=== PATIENT | male | born 1985 | race Two or more races ===

== ENCOUNTER 2018-05-26 06:13 | Day surgery (SDC) | payer MEDICARE, OTHER ==
--- NOTE | 2018-05-23 16:15 | Pre-op HX & Phy Repo 2 SIG ---
DATE OF ADMISSION: 05/26/2018 DATE OF SURGERY: 05/26/2018. PREOPERATIVE DIAGNOSIS: Nonclearing vitreous hemorrhage, left eye. BRIEF NOTE: This is a first [facility] admission for the patient who is a very nice 33-year-old gentleman, who has very severe proliferative diabetic retinopathy and a nonclearing hemorrhage on the left eye. PAST OCULAR HISTORY: Remarkable for multiple Avastin injections in my office. He has a history of diabetic retinopathy. PAST MEDICAL HISTORY: Remarkable for diabetes since 1995. He has had hypertension and has been HIV positive since 2016. PAST SURGICAL HISTORY: He had an amputation in 2008 as well as gallbladder surgery in 2018. MEDICATIONS: Descovy, Lantus, NovoLog, atorvastatin, lisinopril, and amlodipine. ALLERGIES: He has no known allergies. SOCIAL HISTORY: He does not smoke. PHYSICAL EXAMINATION: EYES: Best vision at the time of admission was 20/25 in the right eye and 20/60- in the left. The pressures were 13 and 14. The anterior segments were quiet in either eye. Fundus exam of the right eye showed optic disc neovascularization. There was some degree of diabetic macular edema. Peripheral vascular tortuosity was seen as well as proliferative retinopathy. The left fundus showed a fairly significant vitreous hemorrhage with some mild degree of central clearing. There was widespread proliferative retinopathy. General physical examination will be done by Dr. Cohen. ASSESSMENT: Severe proliferative diabetic retinopathy both eyes were nonclearing vitreous hemorrhage, left eye. PLAN: The plan is to perform a pars plana vitrectomy with membrane dissection as needed, extensive endolaser, and Avastin injection on the left. The risks and benefits of surgery gone over the patient with potential for infection, hemorrhage, retinal detachment, glaucoma, remote possibility of loss of the eye. The risk of anesthesia was discussed. The patient understands and consents to the surgery, which will be performed on Saturday morning. Feliciano Vernon M.D. DR: ARSLAN JOB#: [id number] CC:
[2018-05-26] VITALS (11 sets, daily range): BP systolic 116–160; BP diastolic 69–101
[~2018-05-26] VITALS: Ht 175.3 cm; Wt 93.0 kg
[~2018-05-26 06:13] MED LIST: Avastin 10mg Inj IVITRE ONE
[2018-05-26] MEDS: Cyclopentolate 1% Opth Sol 2ml LEFT EYE SCH ×3 (06:46→07:01)
[2018-05-26] MEDS: Flurbiprofen 0.03% Opth Sol 2.5ml LEFT EYE SCH ×3 (06:46→07:01)
[2018-05-26] MEDS: Vigamox Opth Soln 3ml LEFT EYE SCH ×3 (06:46→07:01)
[2018-05-26] MEDS: Phenylephrine 2.5% Op 2ml Soln LEFT EYE SCH ×3 (06:46→07:01)
[2018-05-26] MEDS ORDERED: Pred Forte 1% Opth Susp 1ml LEFT EYE SCH (07:00)
[2018-05-26] MEDS ORDERED: EPINEPHrine 1mg/1ml Amp ONE (07:05)
[2018-05-26] MEDS ORDERED: BSS 15ml BTL ONE (07:06)
[2018-05-26] MEDS ORDERED: Pred Forte 1% Opth Susp 1ml ONE (07:06)
[2018-05-26] MEDS ORDERED: Kenalog-40 1ml Vial ONE (07:06)
[2018-05-26] MEDS ORDERED: Dexamethasone 4mg/ml vial ONE (07:06)
[2018-05-26] MEDS ORDERED: BSS 500ml btl ONE (07:06)
[2018-05-26] MEDS ORDERED: Kenalog-10 5ml Inj ONE (07:06)
[2018-05-26] MEDS ORDERED: Lidocaine 2% MPF 5ml Vial INJ ONE (07:06)
[2018-05-26] MEDS ORDERED: Maxitrol Opth Oint 3.5gm ONE (07:06)
[2018-05-26] MEDS ORDERED: Bupivacaine 0.75% 30ml vial INJ ONE (07:07)
[2018-05-26] MEDS ORDERED: Povidone-Iodine 5% opth solution ONE (07:07)
[2018-05-26] MEDS ORDERED: Tetracaine 0.5% Opth 4ml Soln ONE (07:07)
[2018-05-26] MEDS ORDERED: Sodium Hyaluronate 10 mg/ml 0.85ml ONE (07:07)
[2018-05-26] MEDS ORDERED: ASPIR 8181 MG ORAL (07:13)
[2018-05-26] MEDS ORDERED: descovy PO (07:13)
[2018-05-26] MEDS ORDERED: NORVASC10 MG ORAL (07:13)
[2018-05-26] MEDS ORDERED: LISINOPRIL20 MG ORAL (07:13)
[2018-05-26] MEDS ORDERED: ATORVASTATIN CA20 MG ORAL (07:13)
[2018-05-26] MEDS ORDERED: TIVICAY50 MG ORAL (07:13)
[2018-05-26] MEDS ORDERED: NOVOLOG100 UNIT/4 SQ (07:15)
--- NOTE | 2018-05-26 07:24 | Pre-Procedure Note/Attestation ---
Pre-Procedure Note/Attestation Complete Prior to Procedure Planned Procedure: left Procedure Narrative: PPV, endolaser, Avastin injection Left eye Indications for Procedure Pre-Operative Diagnosis: Non-clearing vitreous hemorrhage Left eye Attestation I attest that I discussed the nature of the procedure; its benefits; risks and complications; and alternatives (and the risks and benefits of such alternatives ), prior to the procedure, with the patient (or the patient's legal commercial sales representative). I attest that, if there was a reasonable possibility of needing a blood transfusion, the patient (or the patient's legal commercial sales representative) was given the [facility] standardized written summary, pursuant to the [place] Blood Safety Act ([place] Health and Safety Code # 1645, as amended). I attest that I re-evaluated the patient just prior to the surgery and that there has been no change in the patient's H&P, except as documented below: JAYCE SOLO May 26, 2018 07:24
[2018-05-26] MEDS ORDERED: NS Irrig 1000ml ONE (07:30)
[2018-05-26] MEDS ORDERED: Sterile Water Irrig 1000ml IRRIG ONE (07:30)
[2018-05-26] MEDS ORDERED: Lidocaine 1% MPF 10mg/ml 5ml ONE (07:30)
[2018-05-26] MEDS ORDERED: Propofol 200mg/20ml IV ONE (07:30)
[2018-05-26] MEDS ORDERED: LR 1000ml 1,000 ML IVLG SCH (07:32)
--- NOTE | 2018-05-26 07:35 | Anethesia Preoperative Eval ---
Anesthesia Pre-op PMH/ROS General Date of Evaluation: May 26, 2018 Time of Evaluation: 07:31 Anesthesiologist: Dillon ASA Score: ASA 3 Mallampati Score Class I : Soft palate, uvula, fauces, pillars visible Class II: Soft palate, uvula, fauces visible Class III: Soft palate, base of uvula visible Class IV: Only hard plate visible Mallampati Classification: Class II Surgeon: Janeen Diagnosis: Vitreous Hemorrage OS Surgical Procedure: Vitrectomy OS Anesthesia History: none Family History: no anesthesia problems Allergies: Coded Allergies: No Known Allergies (Unverified , 05/26/18) Medications: see eMAR Past Medical History Cardiovascular: Reports: HTN, other - HL Endocrine: Reports: DM Hematology/Immune: Reports: other - HIV Other: obesity - BMI 32 PSxH Narrative: Cholecystectomy Anesthesia Pre-op Phys. Exam Physician Exam Last Vital Signs Date Time Temp Pulse Resp B/P (MAP) Pulse Ox O2 Delivery O2 Flow Rate FiO2 05/26/18 07:19 Room Air 05/26/18 06:53 97.9 78 18 153/89 (110) 100 97.9 Constitutional: NAD Neurologic: CN 2-12 intact Cardiovascular: RRR Respiratory: CTA Gastrointestinal: S/NT/ND Airway Exam Mallampati Score: Class II MO: full ROM: full Teeth: intact Anesthesia Pre-op A/P Labs Hematology Test 05/26/18 07:14 White Blood Count Pending Red Blood Count Pending Hemoglobin Pending Hematocrit Pending Mean Corpuscular Volume Pending Mean Corpuscular Hemoglobin Pending Mean Corpuscular Hemoglobin Concent Pending Red Cell Distribution Width Pending Platelet Count Pending Mean Platelet Volume Pending Neutrophils (%) (Auto) Pending Lymphocytes (%) (Auto) Pending Monocytes (%) (Auto) Pending Eosinophils (%) (Auto) Pending Basophils (%) (Auto) Pending Chemistry Test 05/26/18 07:14 Sodium Level Pending Potassium Level Pending Chloride Level Pending Carbon Dioxide Level Pending Blood Urea Nitrogen Pending Creatinine Pending Estimat Glomerular Filtration Rate Pending Glucose Level Pending Calcium Level Pending Risk Assessment & Plan Assessment: ASA 3 Plan: GA Status Change Before Surgery: Aaron Brown MD May 26, 2018 07:35
[2018-05-26 07:38] LABS: BASOPHILS % (AUTO) 1.3 % (0.0-2.0); EOSINOPHILS % (AUTO) 8.7 % (0.0-3.0); HEMATOCRIT 32.2 % (42.0-52.0); HEMOGLOBIN 11.4 G/DL (14.2-18.0); LYMPHOCYTES % (AUTO) 28.7 % (20.0-45.0); MEAN CORPUSCULAR VOLUME 88 FL (80-99); MONOCYTES % (AUTO) 6.8 % (1.0-10.0); NEUTROPHILS % (AUTO) 54.5 % (45.0-75.0); PLATELET COUNT 228 K/UL (150-450); RED BLOOD COUNT 3.67 M/UL (4.70-6.10); WHITE BLOOD COUNT 7.1 K/UL (4.8-10.8)
[2018-05-26 07:39] LABS: ANION GAP 9 mmol/L (5-15); BLOOD UREA NITROGEN 31 mg/dL (7-18); CALCIUM 8.3 MG/DL (8.5-10.1); CARBON DIOXIDE 19 MMOL/L (21-32); CHLORIDE 112 MMOL/L (98-107); POTASSIUM 3.8 MMOL/L (3.5-5.1); SODIUM 140 MMOL/L (136-145)
[2018-05-26] MEDS ORDERED: Ketorolac 30mg Inj IV PRN ×2 (07:45)
[2018-05-26] MEDS ORDERED: Midazolam 2mg/2ml Inj IVP PRN (07:45)
[2018-05-26] MEDS ORDERED: DiphenhydrAMINE 50mg/ml Inj IVP PRN (07:45)
[2018-05-26] MEDS ORDERED: Norco 5mg/325mg tab ORAL PRN (07:45)
[2018-05-26] MEDS ORDERED: LORazepam Inj 2mg/ml 1ml IV PRN (07:45)
[2018-05-26] MEDS ORDERED: Atropine Inj 1mg/10ml Syr IV PRN (07:45)
[2018-05-26] MEDS ORDERED: Metoclopramide 10mg/2ml Inj IVP PRN (07:45)
[2018-05-26] MEDS ORDERED: Hydromorphone 0.5mg/0.5ml inj IVP PRN (07:45)
[2018-05-26] MEDS ORDERED: fentaNYL 100 mcg/2 mL IV PRN (07:45)
[2018-05-26] MEDS ORDERED: oxyCODONE HCL/Acetaminophen 5/325mg ORAL PRN (07:45)
[2018-05-26] MEDS ORDERED: HYDROcodone/Acetamin 7.5/325 tab ORAL PRN (07:45)
[2018-05-26] MEDS ORDERED: Labetalol 5mg/ml 20ml vial IV PRN (07:45)
--- NOTE | 2018-05-26 07:56 | Immediate Post-Op Evaluation ---
Immediate Post-Op Evalulation Immediate Post-Op Evalulation Procedure: Vitrectomy OS Date of Evaluation: May 26, 2018 Time of Evaluation: 08:47 IV Fluids: 1000 LR Blood Products: 0 Estimated Blood Loss: 1 Urinary Output: 0 Blood Pressure Systolic: 141 Blood Pressure Diastolic: 78 Pulse Rate: 76 Respiratory Rate: 16 O2 Sat by Pulse Oximetry: 100 Temperature (Fahrenheit): 97.6 Pain Score (1-10): 1 Nausea: No Vomiting: No Complications 0 Patient Status: awake, reacts, patent, none Hydration Status: adequate Aaron Carranza MD May 26, 2018 07:56
--- NOTE | 2018-05-26 07:57 | 48 Hour Post Anesthesia Eval ---
Post Anesthesia Evaluation Procedure: Vitrectomy OS Date of Evaluation: May 26, 2018 Time of Evaluation: 10:42 Blood Pressure Systolic: 151 0: 83 Pulse Rate: 72 Respiratory Rate: 18 Temperature (Fahrenheit): 98.2 O2 Sat by Pulse Oximetry: 100 Airway: patent Nausea: No Vomiting: No Pain Intensity: 2 Hydration Status: adequate Cardiopulmonary Status: Stable Mental Status/LOC: patient returned to baseline Follow-up Care/Observations: 0 Post-Anesthesia Complications: 0 Follow-up care needed: ready to discharge Aaron Carranza MD May 26, 2018 07:57
--- NOTE | 2018-05-26 09:07 | Brief Operative Note ---
Immediate Post Operative Note Operative Note Chief Complaint: clouds in vision, left eye Pre-op Diagnosis: Non-clearing vitreous hemorrhage Left eye Procedure: PPV,endolaser 1605 spots, Avastin 1.25 mg L eye Post-op Diagnosis: same as pre-op Surgeon: desirae Generator Worker: none Anesthesiologist: sheba Anesthesia: MAC Specimen: none Complications: none Condition: stable Fluids: per anesthesia Estimated Blood Loss: none Drains: none Implant(s) used?: JAYCE Seaman May 26, 2018 09:07
--- NOTE | 2018-05-26 11:45 | Pre-op HX & Phy Repo 2 SIG ---
DATE OF ADMISSION: 05/26/2018 PRESURGICAL INTERNAL MEDICINE HISTORY AND PHYSICAL REASON FOR EVALUATION: I was asked by Dr. Feliciano Vernon to see this 33-year-old male, who is going for elective surgery on the left eye. The patient has vitreous hemorrhage, left eye. See full Ophthalmology History and Physical by Dr. Feliciano Vernon. The patient was evaluated. Chart was reviewed. PAST MEDICAL HISTORY AND REVIEW OF SYSTEMS: Remarkable for history of hypertension. No stroke or seizures. Denies history of chest pain, palpitation, or heart attack. The patient has history of insulin-dependent diabetes mellitus. No history of renal failure. No history of respiratory problem, asthma, or bronchitis. Denies history of thyroid problem. No anemia. The patient is HIV positive. SURGICAL HISTORY: Cholecystectomy last month. FAMILY HISTORY: Mother has diabetes mellitus. ALLERGIES: Not known. PRESENT MEDICATIONS: Include atorvastatin, amlodipine 10 mg, baby aspirin 81 mg, lisinopril, Tivicay 50 mg b.i.d., Descovy 200/25, also NovoLog, and Humalog units at bedtime. HABITS: Denies tobacco or alcohol use. No street drugs. PHYSICAL EXAMINATION: GENERAL: Alert, well-developed 33-year-old male, in no distress. VITAL SIGNS: Blood pressure 153/89, temperature 97.9, pulse 78, respiration 18, and O2 saturation 100% on room air. SKIN: multiple tattoo on the leg and arm. No rashes. No open wounds. LYMPH NODES: Not enlarged. HEENT: Head normocephalic and atraumatic. Ears clear, no discharge. Eyes, full description per Dr. Feliciano Vernon. Mouth, clear and moist. Teeth, no dentures. NECK: No jugular venous distention. Carotids artery +2. Trachea midline. CHEST: No deformity or asymmetry. LUNGS: Clear to auscultation and percussion. No rales or rhonchi. No wheezing. HEART: Sinus regular rhythm. No ectopy. No murmur. No S3, S4. ABDOMEN: Soft, benign. Liver and spleen not enlarged. No rebound. EXTREMITIES: He has +1 ankle edema. No varicose vein. No calf tenderness. GENITOURINARY TRACT: No CVA tenderness. NERVOUS SYSTEM: No tremor. No nystagmus. No asymmetry. DIAGNOSTIC DATA: ECG, sinus rhythm, 75 per minute, normal ECG. Last p.o. intake at 7 p.m. yesterday. Fasting blood sugar this morning 142 mg/dL. IMPRESSION: 1. Vitreous hemorrhage, left eye. 2. Hypertension. 3. Insulin-dependent diabetes mellitus. 4. HIV-positive status PLAN: Pars plana vitrectomy, membrane peel, endolaser, left eye per Dr. Feliciano Vernon. CONCLUSION: The patient's vital signs are stable. Blood sugar fairly controlled. The patient did not eat or drink from last night. EKG is normal. The patient's condition optimized for surgery. Thank you very much Dr. Vernon for privilege to participate in presurgical care of this interesting patient. Melba Cohen M.D. DR: Abdoulaye JOB#: [id number] CC:
--- NOTE | 2018-05-26 16:15 | Operative Note - Dictated ---
DATE OF OPERATION: 05/26/2018 PREOPERATIVE DIAGNOSIS: Nonclearing vitreous hemorrhage, left eye. POSTOPERATIVE DIAGNOSIS: Nonclearing vitreous hemorrhage, left eye. PROCEDURES: 1. Pars plana vitrectomy. 2. Endolaser. 3. Avastin injection, left eye. SURGEON: Feliciano Vernon M.D. DIRECTOR OF STRATEGY & MOBILE: None. ANESTHESIA: Local with sedation. ANESTHESIOLOGIST: Dr. Aaron Carranza. JUSTIFICATION: This 33-year-old male with longstanding diabetes, developed a dense vitreous hemorrhage in the left eye that has failed to clear. He is admitted for vitrectomy. BRIEF NOTE: The patient was brought to the operative room, placed on operating room table in supine position. After a time-out was performed and agreed upon by the staff, and initial monitoring secured by Dr. Carranza, retrobulbar and Van Lint blocks were given in the standard way. When the blocks taken effect, he was prepped and draped in normal manner. The lid speculum inserted into the left eye. Using a 23-gauge trocar system, cannulas were placed all except infranasal quadrant. Infusion secured inferotemporally. Vitrectomy was begun posterior to the lens taking care to avoid contact. A central core vitrectomy was done followed by peripheral vitrectomy leaving a small vitreous skirt. The posterior hyaloid had previously disinserted, this was removed. The endolaser was then brought to the eye and a power of 0.3 hoskins, duration 0.2 seconds, a total of 1605 lesions were placed in a broad band extending from just outside the arcades to near the pars plana. No problems were encountered. Scleral depression was done. No peripheral breaks, tears, or detachments were seen. The superior cannulas were removed from the eye and the supranasal cannula was closed with an 8-0 Vicryl suture. The supratemporal cannula was noted to be self-sealing. Through the infusion cannula, Avastin 1.25 mg was injected. The eye was reinflated and this cannula was removed, and the sclerotomy closed with 8-0 Vicryl. Subconjunctival Decadron and gentamicin were injected inferiorly and Maxitrol and atropine ointments were instilled. The eye was patched and shielded and the patient taken to recovery in excellent condition, there were no complications. Feliciano Vernon M.D. DR: ARSLAN JOB#: [id number] CC: Feliciano Vernon M.D.; Fax#: [phone]
--- NOTE | 2018-05-26 18:45 | Cardiology Report ---
APPROVED REPORT EKG Measurement Heart [id number] ND 148P13 [id number] Normal sinus rhythm Normal ECG
== END 2018-05-26 10:40 | disposition home or self-care (01) ==
LOC: SUR 06:13
DX: H43.12 Vitreous hemorrhage, left eye (principal); E10.3512 Type 1 diabetes mellitus with proliferative diabetic retinopathy with macular edema, left eye; Z79.4 Long term (current) use of insulin; I10 Essential (primary) hypertension; Z90.49 Acquired absence of other specified parts of digestive tract; Z79.82 Long term (current) use of aspirin; E66.9 Obesity, unspecified; Z68.32 Body mass index [BMI] 32.0-32.9, adult; E78.5 Hyperlipidemia, unspecified
CPT/HCPCS: 36415; 67039; 80048; 82962; 85025; 93005; J0171; J1100; J2250; J2704; J3490; J9035; 94003; 94150